=== PATIENT | female | born 1945 | race Caucasian/White ===

== ENCOUNTER 2016-08-18 22:35 | Emergency (ER) | payer MEDICARE ==
[2016-08-18 22:39] VITALS: BP 131/69
[2016-08-18] MEDS ORDERED: traMADol TAB* 50 MG PO ONE (23:35)
--- NOTE | 2016-08-19 00:41 | ED ---
Upper Extremity Pain - HPI Summary HPI Summary: 71F presents with left wrist pain s/p FOOSH today. She states she stumbled backwards and landed on her left hand. She is left handed. She denies any previous fracture to the area. She denies any numbness or tingling. She took an alleve for pain. She is retired. The fall was a mechanical fall. She denies any numbness or tingling. She has been placing ice on the area. - History of Current Complaint Chief Complaint: EDExtremityUpper Stated Complaint: WRIST INJURY Time Seen by Provider: 08/18/16 23:19 - Allergies/Home Medications Allergies/Adverse Reactions: Allergies Allergy/AdvReac Type Severity Reaction Status Date / Time Penicillins Allergy Severe Hives Verified 10/12/15 21:02 PMH/Surg Hx/FS Hx/Imm Hx Endocrine/Hematology History: Denies: Hx Diabetes, Hx Thyroid Disease Cardiovascular History: Denies: Hx Congestive Heart Failure, Hx Hypertension Respiratory History: Denies: Hx Asthma, Hx Chronic Obstructive Pulmonary Disease (COPD) GI History: Denies: Hx Ulcer History: Denies: Hx Renal Disease Musculoskeletal History: Reports: Hx Rheumatoid Arthritis Denies: Hx Osteoporosis - Cancer History Hx Chemotherapy: No Hx Radiation Therapy: No - Surgical History Surgery Procedure, Year, and Place: - Immunization History Date of Tetanus Vaccine: Unk Date of Influenza Vaccine: Fall 2013 Infectious Disease History: Reports: 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 Denies: Hx Clostridium Difficile, Hx Hepatitis, Hx Human Immunodeficiency Virus (HIV), Hx Shingles, Hx Tuberculosis, Traveled Outside the [place] in Last 30 Days - Family History Known Family History: Positive: Other - Alzheimers and dementia - Social History Alcohol Use: None Substance Use Type: Reports: None Smoking Status (MU): Never Smoked Tobacco Review of Systems Negative: Fever Negative: Chest Pain Negative: Shortness Of Breath Positive: Myalgia - left wrist pain All Other Systems Reviewed And Are Negative: Yes Physical Exam Triage Information Reviewed: Yes Vital Signs On Initial Exam: Initial Vitals Temp Pulse Resp BP Pulse Ox 99 F 97 18 131/69 98 08/18/16 22:36 08/18/16 22:36 08/18/16 22:36 08/18/16 22:36 08/18/16 22:36 Vital Signs Reviewed: Yes Appearance: Positive: Well-Appearing Skin: Positive: Warm, Dry Head/Face: Positive: Normal Head/Face Inspection Eyes: Positive: Normal, Conjunctiva Clear ENT: Positive: Normal ENT inspection, Pharynx normal, TMs normal Respiratory/Lung Sounds: Positive: Clear to Auscultation, Breath Sounds Present Cardiovascular: Positive: Normal, RRR Musculoskeletal: Positive: Limited @ - left wrist, Other - good pulses, capillary refill < 2 secs, nontender finger and full ROM, neg snuff box tenderness Procedures - Splinting Location: left wrist Hand-Made Type: orthoglass Splint: sugar-tong Pre-Proc Neuro Vasc Exam: normal Post-Proc Neuro Vasc Exam: normal Diagnostics - Vital Signs Vital Signs Temp Pulse Resp BP Pulse Ox 08/18/16 22:36 99 F 97 18 131/69 98 - Laboratory Lab Statement: Any lab studies that have been ordered have been reviewed, and results considered in the medical decision making process. - Radiology wrist Xray Interpretation: Positive (See Comments) - distal radial fracture with impaction Radiology Interpretation Completed By: ED Physician Course/Dx - Course Course Of Treatment: 71F presents with left wrist pain s/p falling on wrist today. was mechanical fall. denies any previous injury. is left handed. neurovascular intact, no deformity seen on exam but had edema present. xray read by me as distal radius fracture. applied sugar tong splint. patient understands and agrees with plan - Diagnoses Differential Diagnosis/HQI/PQRI: Positive: Fracture (Closed), Strain Provider Diagnoses: Left radial fracture Discharge - Discharge Plan Condition: Good Disposition: HOME Prescriptions: traMADol TAB* [Ultram*] 25 mg PO Q8H PRN #15 tab MDD 3 PRN Reason: Pain Patient Education Materials: Wrist Fracture in Adults (ED) Referrals: Bess Kaur NP [Primary Care Provider] - Farrukh Curran MD [Medical Doctor] - Additional Instructions: Keep elbow in sling as needed, make sure to take out a couple times a day and move shoulder around Keep splint on area and keep dry Call ortho office to set up appointment for follow up Use tyenlol or ibuprofen for pain every 6 hours and use narcotic for breakthrough pain every 8 hours Ice, elevate Return to ED if develop any new or worsening symptoms
--- NOTE | 2016-08-19 09:26 | RAD ---
INDICATION: Wrist pain after a fall on outstretched hand COMPARISON: None. TECHNIQUE: 3 views left wrist. REPORT: There is a slightly displaced fracture of the distal left radial metaphysis with disruption of the palmar aspect cortex visible on the lateral view radiograph. There is also fracture of the left ulnar styloid. The remaining visualized bones are intact and properly aligned. IMPRESSION: Minimally displaced fracture involving the distal left radius and ulnar styloid.
== END 2016-08-19 01:00 | disposition home or self-care (01) ==
LOC: ED 22:35
DX: S52.502A Unspecified fracture of the lower end of left radius, initial encounter for closed fracture (principal); S52.612A Displaced fracture of left ulna styloid process, initial encounter for closed fracture; W18.30XA Fall on same level, unspecified, initial encounter; Y93.9 Activity, unspecified; Y92.9 Unspecified place or not applicable; M06.9 Rheumatoid arthritis, unspecified; Z88.0 Allergy status to penicillin
CPT/HCPCS: 99281; A9270-GY

== ENCOUNTER 2016-10-26 18:15 | Emergency (ER) | payer MEDICARE ==
[2016-10-26 18:30] VITALS: BP 128/78
--- NOTE | 2016-10-26 19:38 | ED ---
Throat Pain/Nasal Congestion - HPI Summary HPI Summary: 71 yr old female with the complaint of left ear pain. Onset over the past week. She got some water in her left ear during shower. she has had progressive pain and discomfort. She has not had drainage. She denies fever, chills. She states the pain from the left ear radiates toward the front and points to the preauricular area, and also the inferior auricular area. She has some discomfort as anterior as the zygomatic area on the left. - History of Current Complaint Chief Complaint: UCEar Time Seen by Provider: 10/26/16 19:20 - Allergies/Home Medications Allergies/Adverse Reactions: Allergies Allergy/AdvReac Type Severity Reaction Status Date / Time Penicillins Allergy Severe Hives Verified 10/26/16 18:30 PMH/Surg Hx/FS Hx/Imm Hx Endocrine/Hematology History: Denies: Hx Diabetes, Hx Thyroid Disease Cardiovascular History: Denies: Hx Congestive Heart Failure, Hx Hypertension Respiratory History: Denies: Hx Asthma, Hx Chronic Obstructive Pulmonary Disease (COPD) GI History: Denies: Hx Ulcer History: Denies: Hx Renal Disease Musculoskeletal History: Reports: Hx Rheumatoid Arthritis Denies: Hx Osteoporosis Neurological History: Reports: Other Neuro Impairments/Disorders - cental tremors. 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 Denies: Hx Clostridium Difficile, Hx Hepatitis, Hx Human Immunodeficiency Virus (HIV), Hx Shingles, Hx Tuberculosis, Traveled Outside the [place] in Last 30 Days - Family History Known Family History: Positive: Other - Alzheimers and dementia - Social History Alcohol Use: None Substance Use Type: Reports: None Smoking Status (MU): Never Smoked Tobacco Review of Systems Constitutional: Negative Positive: Ear Ache All Other Systems Reviewed And Are Negative: Yes Physical Exam Triage Information Reviewed: Yes Vital Signs On Initial Exam: Initial Vitals Temp Pulse Resp BP Pulse Ox 98.5 F 73 18 128/78 99 10/26/16 18:27 10/26/16 18:27 10/26/16 18:27 10/26/16 18:27 10/26/16 18:27 Vital Signs Reviewed: Yes Appearance: Positive: Well-Appearing, No Pain Distress Skin: Positive: Warm Head/Face: Positive: Normal Head/Face Inspection Eyes: Positive: EOMI ENT: Positive: Other - left external canal is with edema, and redness. She has tenderness on retraction of the left pinna Neck: Positive: Supple, Tenderness @ - pre and inferior auricular area on the left. no tenderness over the left zygomatic area. Respiratory/Lung Sounds: Positive: Clear to Auscultation, Breath Sounds Present Cardiovascular: Positive: RRR. Negative: Murmur Musculoskeletal: Positive: Strength/ROM Intact Neurological: Positive: Sensory/Motor Intact, Alert, Oriented to Person Place, Time, CN Intact II-III - Gwyn Coma Scale Best Eye Response: 4 - Spontaneous Best Motor Response: 6 - Obeys Commands Best Verbal Response: 5 - Oriented Diagnostics - Vital Signs Vital Signs Temp Pulse Resp BP Pulse Ox 10/26/16 18:27 98.5 F 73 18 128/78 99 - Laboratory Lab Statement: Any lab studies that have been ordered have been reviewed, and results considered in the medical decision making process. EENT Course/Dx - Course Course Of Treatment: 71 yr old with left otitis externa, dc home on cipro hc - Diagnoses Provider Diagnoses: Otitis externa Discharge - Discharge Plan Condition: Good Disposition: HOME Prescriptions: Ciprofloxacin-Hydrocortisone [Cipro Hc] 3 drop LEFT EAR BID #1 bottle Patient Education Materials: Otitis Externa (ED) Referrals: Bess Kaur NP [Primary Care Provider] -
== END 2016-10-26 19:40 | disposition home or self-care (01) ==
LOC: UCEAST 18:15
DX: H60.92 Unspecified otitis externa, left ear (principal); Z88.0 Allergy status to penicillin; M06.9 Rheumatoid arthritis, unspecified
CPT/HCPCS: 99212; G0463

== ENCOUNTER 2017-01-16 19:43 | Emergency (ER) | payer MEDICARE ==
[2017-01-16 19:52] VITALS: BP 107/88
--- NOTE | 2017-01-16 20:05 | UC ---
Lower Extremity/Ankle HPI - HPI Summary HPI Summary: Pt presents with left leg bruising and pain after a fall 3 days ago. She tells me that 3 days ago she was carrying items down a few concrete steps outside her daughter's home at nighttime - she missed a step and fell forward, landing on her left knee and chavis. She sustained a superficial laceration to her upper chavis , abrasion to her left knee, and experienced immediate pain. Did not hit her head. She did not seek immediate medical treatment. She was able to ambulate without assistance. She put a bandage over the laceration and iced the leg that night. Yesterday she was very active taking care of his grandchildren and doing some shopping - at the end of the day, her left leg was more painful than previously. Today she noticed significant bruising about the anterior aspect of the left leg and presented to for evaluation. She denies fever, chills, SOB, history of any bleeding or clotting disorders, previous injury to that LE, numbness or tingling. - History of Current Complaint Chief Complaint: UCLowerExtremity Stated Complaint: LEG INJURY Time Seen by Provider: 01/16/17 20:05 Hx Obtained From: Patient Onset/Duration: Sudden Onset Severity Initially: Moderate Severity Currently: Mild Pain Intensity: 4 Pain Scale Used: 0-10 Numeric Aggravating Factor(s): Standing, Ambulation Alleviating Factor(s): Rest, Ice Able to Bear Weight: Yes - Allergies/Home Medications Allergies/Adverse Reactions: Allergies Allergy/AdvReac Type Severity Reaction Status Date / Time Penicillins Allergy Severe Hives Verified 01/16/17 19:52 PMH/Surg Hx/FS Hx/Imm Hx Previously Healthy: Yes - Surgical History Surgical History: Yes Surgery Procedure, Year, and Place: - Family History Known Family History: Positive: Other - Alzheimers and dementia - Social History Occupation: Retired Lives: With Family Alcohol Use: None Substance Use Type: None Smoking Status (MU): Never Smoked Tobacco - Immunization History Most Recent Tetanus Shot: not sure Review of Systems Constitutional: Negative Skin: Bruising - Left leg Respiratory: Negative Cardiovascular: Negative Gastrointestinal: Negative Musculoskeletal: Other: - Pain left leg Neurological: Negative Psychological: Negative All Other Systems Reviewed And Are Negative: Yes Physical Exam Triage Information Reviewed: Yes Appearance: Well-Appearing, Well-Nourished Vital Signs: Initial Vital Signs Temp 98.1 F 01/16/17 19:47 Pulse 78 01/16/17 19:47 Resp 18 01/16/17 19:47 BP 107/88 01/16/17 19:47 Pulse Ox 100 01/16/17 19:47 Vital Signs Reviewed: Yes Respiratory: Positive: Chest non-tender, Lungs clear, Normal breath sounds, No respiratory distress, No accessory muscle use Cardiovascular: Positive: RRR, No Murmur, Pulses Normal, Brisk Capillary Refill Musculoskeletal: Positive: Strength Intact, ROM Intact, Edema @ - Mild edema left leg surround the area of injury., Other: - Left leg/knee NTTP. No calf pain or tenderness. Neurological: Positive: Alert, Muscle Tone Normal, Other: - Sensations intact b/ l LE. Psychological: Positive: Age Appropriate Behavior Skin: Positive: Other - Two significant sites of ecchymosis on the anterior and medial aspect of left leg #1 approx 13-14cm in diameter and #2 approx 9-10cm in diameter. There is a 1.5cm elliptically shaped laceration situated superficially on the left tibial tuberosity..appears to be healing and scabbing without any drainage, bleeding, streaking, or odor. There is a 1cm diameter superficial abrasion on the left patella. There is no erythema, streaking, or nodules appreciated. Lower Extremity Course/Dx - Course Course Of Treatment: Pt advised to continue elevating, icing, and ambulating as tolerated. Advised to watch for warning signs of infection or clot - such as SOB, redness, pain, localized swelling, calf pain, fever, or chills. - Differential Dx/Diagnosis Differential Diagnosis/HQI/PQRI: Cellulitis, Contusion, Foreign Body, Fracture ( Closed), Phlebitis, Sprain, Strain Provider Diagnoses: Left leg contusion Discharge - Discharge Plan Condition: Stable Disposition: HOME Patient Education Materials: Hematoma (ED) Referrals: Bess Kaur NP [Primary Care Provider] - Additional Instructions: 1) Ice and elevate your leg 2) Keep walking and activities as tolerated Monitor the leg for any redness, increased swelling, or increased areas of pain - if you develop these or shortness of breath, fever, or chest pain - please go to the ED.
== END 2017-01-16 20:37 | disposition home or self-care (01) ==
LOC: UCEAST 19:43
DX: S81.812A Laceration without foreign body, left lower leg, initial encounter (principal); W10.8XXA Fall (on) (from) other stairs and steps, initial encounter; Y93.01 Activity, walking, marching and hiking; Y92.008 Other place in unspecified non-institutional (private) residence as the place of occurrence of the external cause; Y99.9 Unspecified external cause status
CPT/HCPCS: 99211; G0463

== ENCOUNTER 2017-05-02 13:39 | Emergency (ER) | payer MEDICARE ==
[2017-05-02 14:14] VITALS: BP 136/82
[2017-05-02] MEDS ORDERED: Acetaminophen TAB* 325 MG PO ONE (14:57)
--- NOTE | 2017-05-02 15:05 | UC ---
Respiratory Complaint HPI - HPI Summary HPI Summary: 71 year old female here for fever, cough and congestion since yesterday. Her also had similar symptoms few days ago, and diagnosed with the flu. She denies n/v/d chest pain or sob. - History of Current Complaint Chief Complaint: UCRespiratory Stated Complaint: FLU SYMPTOMS Time Seen by Provider: 05/02/17 14:20 Hx Obtained From: Patient ?: No Onset/Duration: Gradual Onset Timing: Constant Severity Initially: Mild Pain Intensity: 0 Character: Cough: Productive Associated Signs And Symptoms: Positive: Fever, Nasal Congestion. Negative: Pleuritic Chest Pain, Wheezing, Hemoptysis, Calf Pain, Edema, Hoarseness, Sinus Discomfort - Allergies/Home Medications Allergies/Adverse Reactions: Allergies Allergy/AdvReac Type Severity Reaction Status Date / Time Penicillins Allergy Hives Verified 05/02/17 14:14 Home Medications: Home Medications Simvastatin 20 mg PO DAILY 05/02/17 [History Confirmed 05/02/17] PMH/Surg Hx/FS Hx/Imm Hx Previously Healthy: No Cardiovascular History: Hypertension Neurological History: Other - central tremors Other Neurological History: Central tremors - Surgical History Surgical History: Yes Surgery Procedure, Year, and Place: - Family History Known Family History: Positive: Other - Alzheimers and dementia - Social History Alcohol Use: None Substance Use Type: None Smoking Status (MU): Never Smoked Tobacco - Immunization History Most Recent Tetanus Shot: not sure Review of Systems Constitutional: Fever Skin: Negative Eyes: Negative ENT: Negative Respiratory: Cough Cardiovascular: Negative Gastrointestinal: Negative Genitourinary: Negative Motor: Negative Neurovascular: Negative Musculoskeletal: Negative Neurological: Negative Psychological: Negative All Other Systems Reviewed And Are Negative: Yes Physical Exam Triage Information Reviewed: Yes Appearance: Well-Appearing, No Pain Distress Vital Signs: Initial Vital Signs Temp 38.7 C 05/02/17 14:10 Pulse 95 05/02/17 14:10 Resp 16 05/02/17 14:10 BP 136/82 05/02/17 14:10 Pulse Ox 98 05/02/17 14:10 Vital Signs Reviewed: Yes Eye Exam: Normal ENT Exam: Normal ENT: Positive: Nasal drainage, Uvula midline. Negative: Pharyngeal erythema, TMs normal, TM bulging, TM dull, TM red, Tonsillar swelling, Tonsillar exudate, Trismus, Hoarse voice, Sinus tenderness Dental Exam: Normal Neck exam: Normal Respiratory Exam: Normal Cardiovascular Exam: Normal Abdominal Exam: Normal Musculoskeletal Exam: Normal Neurological Exam: Normal Psychological Exam: Normal Skin Exam: Normal UC Diagnostic Evaluation - Laboratory O2 Sat by Pulse Oximetry: 98 Respiratory Course/Dx - Course Course Of Treatment: Patient febrile here. Given antipyretic. She appears well , non-toxic. Reassured and supportive care instructions. - Differential Dx/Diagnosis Differential Diagnosis/HQI/PQRI: Bronchitis, Laryngitis, Lower Resp Infection, Sinusitis Provider Diagnoses: Viral illness Discharge - Discharge Plan Condition: Good Disposition: HOME Prescriptions: Guaifen/Dextromethorphan/K Cit [Sorbutuss Liquid] 5 ml PO Q6HR #1 bottle MDD 2 Patient Education Materials: Viral Syndrome (ED) Referrals: Bess Kaur NP [Primary Care Provider] -
== END 2017-05-02 15:24 | disposition home or self-care (01) ==
LOC: UCEAST 13:39
DX: B34.9 Viral infection, unspecified (principal); I10 Essential (primary) hypertension; G25.0 Essential tremor; Z88.0 Allergy status to penicillin
CPT/HCPCS: 87502; 99212; A9270-GY; G0463

== ENCOUNTER 2017-10-02 20:12 | Emergency (ER) | payer MEDICARE ==
[2017-10-02 20:21] VITALS: BP 117/63
--- NOTE | 2017-10-02 20:41 | UC ---
Ear Complaint HPI - HPI Summary HPI Summary: ears feels clogged - History of Current Complaint Chief Complaint: UCEar Stated Complaint: EAR COMPLAINT Time Seen by Provider: 10/02/17 20:30 Hx Obtained From: Patient ?: No Onset/Duration: Sudden Onset Pain Intensity: 2 Pain Scale Used: 0-10 Numeric Associated Signs/Symptoms: Positive: Hearing Loss - Allergies/Home Medications Allergies/Adverse Reactions: Allergies Allergy/AdvReac Type Severity Reaction Status Date / Time Penicillins Allergy Hives Verified 10/02/17 20:21 PMH/Surg Hx/FS Hx/Imm Hx Previously Healthy: No Endocrine History: Dyslipidemia Neurological History: Other Other Neurological History: essential tremor - Surgical History Surgical History: Yes Surgery Procedure, Year, and Place: - Family History Known Family History: Positive: Other - Alzheimers and dementia - Social History Occupation: Retired Lives: With Family Alcohol Use: None Substance Use Type: None Smoking Status (MU): Never Smoked Tobacco - Immunization History Most Recent Tetanus Shot: not sure Review of Systems Constitutional: Negative Skin: Negative Eyes: Negative ENT: Ear Ache - bilateral ear congestion and pressure Respiratory: Negative Cardiovascular: Negative Gastrointestinal: Negative Genitourinary: Negative Motor: Negative Neurovascular: Negative Musculoskeletal: Negative Neurological: Negative Psychological: Negative Is Patient Immunocompromised?: No All Other Systems Reviewed And Are Negative: Yes Physical Exam Triage Information Reviewed: Yes Appearance: Well-Appearing, No Pain Distress, Well-Nourished Vital Signs: Initial Vital Signs Temp 97.8 F 10/02/17 20:16 Pulse 83 10/02/17 20:16 Resp 18 10/02/17 20:16 BP 117/63 10/02/17 20:16 Pulse Ox 96 10/02/17 20:16 Vital Signs Reviewed: Yes Eye Exam: Normal Eyes: Positive: Conjunctiva Clear ENT Exam: Normal ENT: Positive: Normal ENT inspection, Hearing grossly normal, Pharynx normal, Nasal drainage, TMs normal - cerumen impaction TM WNL after irragation and cerumen removal. Negative: Trismus, Muffled voice, Hoarse voice, Sinus tenderness Dental Exam: Normal Neck exam: Normal Neck: Positive: Supple, Nontender Respiratory Exam: Normal Respiratory: Positive: Chest non-tender, No respiratory distress, No accessory muscle use Cardiovascular Exam: Normal Cardiovascular: Positive: RRR, Pulses Normal, Brisk Capillary Refill Musculoskeletal Exam: Normal Musculoskeletal: Positive: Strength Intact, ROM Intact, No Edema Neurological Exam: Normal Neurological: Positive: Alert, Muscle Tone Normal Psychological Exam: Normal Skin Exam: Normal Ear Complaint Course/Dx - Course Course Of Treatment: tolerated wax removal well and feels much better - Differential Dx/Diagnosis Provider Diagnoses: bilateral cerumen impaction-resolved Discharge - Sign-Out/Discharge Documenting (check all that apply): Patient Departure - Discharge Plan Condition: Stable Disposition: HOME Patient Education Materials: Cerumen Impaction (ED) Referrals: Bess Kaur NP [Primary Care Provider] - If Needed - Billing Disposition and Condition Condition: STABLE Disposition: Home
== END 2017-10-02 21:37 | disposition home or self-care (01) ==
LOC: UCEAST 20:12
DX: H61.23 Impacted cerumen, bilateral (principal); Z88.0 Allergy status to penicillin
CPT/HCPCS: 99213; G0463

== ENCOUNTER 2018-01-22 13:01 | Emergency (ER) | payer MEDICARE ==
[2018-01-22 13:53] VITALS: BP 125/72
--- NOTE | 2018-01-22 15:09 | UC ---
Respiratory Complaint HPI - HPI Summary HPI Summary: 72 yo female with sinus pressure and post nasal drip for about 3 weeks No f/c past day feels like its in her chest (chest tightness) has had bronchitis before - History of Current Complaint Chief Complaint: UCRespiratory Stated Complaint: RESP COMPLAINT Time Seen by Provider: 01/22/18 14:48 Hx Obtained From: Patient Onset/Duration: Sudden Onset, Lasting Weeks Timing: Constant Severity Initially: Mild Severity Currently: Moderate Pain Intensity: 3 Pain Scale Used: 0-10 Numeric Character: Cough: Nonproductive Aggravating Factors: Nothing Associated Signs And Symptoms: Positive: URI, Nasal Congestion, Hoarseness, Sinus Discomfort - Allergies/Home Medications Allergies/Adverse Reactions: Allergies Allergy/AdvReac Type Severity Reaction Status Date / Time Penicillins Allergy Hives Verified 01/22/18 13:52 Home Medications: Home Medications Chlorpheniramine/Dextromethorp [Cough-Cold Tablet] 1 tab PO ONCE PRN 01/22/18 [ History Confirmed 01/22/18] PMH/Surg Hx/FS Hx/Imm Hx Previously Healthy: Yes Endocrine History: Dyslipidemia - Surgical History Surgical History: Yes Surgery Procedure, Year, and Place: - Family History Known Family History: Positive: Hypertension, Other - Alzheimers and dementia - Social History Alcohol Use: None Substance Use Type: None Smoking Status (MU): Never Smoked Tobacco - Immunization History Most Recent Tetanus Shot: not sure Review of Systems All Other Systems Reviewed And Are Negative: Yes Constitutional: Positive: Negative Skin: Positive: Negative Eyes: Positive: Negative ENT: Positive: Nasal Discharge, Sinus Congestion, Sinus Pain/Tenderness Respiratory: Positive: Cough Cardiovascular: Positive: Negative Gastrointestinal: Positive: Negative Genitourinary: Positive: Negative Motor: Positive: Negative Neurovascular: Positive: Negative Musculoskeletal: Positive: Negative Neurological: Positive: Negative Psychological: Positive: Negative Physical Exam Triage Information Reviewed: Yes Appearance: Well-Appearing, No Pain Distress, Well-Nourished Vital Signs: Initial Vital Signs Temp 98.7 F 01/22/18 13:47 Pulse 59 01/22/18 13:47 Resp 20 01/22/18 13:47 BP 125/72 01/22/18 13:47 Pulse Ox 97 01/22/18 13:47 Vital Signs Reviewed: Yes Eyes: Positive: Conjunctiva Clear ENT: Positive: Hearing grossly normal, Sinus tenderness. Negative: Nasal congestion, Nasal drainage, Tonsillar swelling, Tonsillar exudate, Muffled voice , Hoarse voice, Dental tenderness Neck: Positive: Supple, Nontender, No Lymphadenopathy Respiratory: Positive: No respiratory distress, No accessory muscle use, Other: - rhonchi with forced expiration only Cardiovascular: Positive: RRR. Negative: Tachycardia, Bradycardia Musculoskeletal: Positive: ROM Intact, No Edema Neurological: Positive: Alert, Other: - temors Psychological Exam: Normal Skin Exam: Normal UC Diagnostic Evaluation - Laboratory O2 Sat by Pulse Oximetry: 97 - normal/not hypoxic Respiratory Course/Dx - Differential Dx/Diagnosis Provider Diagnoses: acute bronchitis. acute sinusitis Discharge - Sign-Out/Discharge Documenting (check all that apply): Patient Departure All imaging exams completed and their final reports reviewed: No Studies - Discharge Plan Condition: Stable Disposition: HOME Prescriptions: ceFUROXime TAB(*) [Ceftin TAB(*)] 250 mg PO BID #14 tab Fluticasone NASAL SPRAY 50MCG* [Flonase NASAL SPRAY 50MCG*] 2 spray BOTH NARES BID #1 btl Patient Education Materials: Sinusitis (ED), Acute Bronchitis (ED) Referrals: Bess Kaur NP [Primary Care Provider] - 5 Days (if not better) Additional Instructions: saline nasal spray 2 sprays each nostril twice daily about 5 minutes after the saline sprays use your flonase recheck for new or worsening symptoms - Billing Disposition and Condition Condition: STABLE Disposition: Home
== END 2018-01-22 15:32 | disposition home or self-care (01) ==
LOC: UCEAST 13:01
DX: J20.9 Acute bronchitis, unspecified (principal); J01.90 Acute sinusitis, unspecified; Z88.0 Allergy status to penicillin
CPT/HCPCS: 99212; G0463

== ENCOUNTER 2018-02-03 14:59 | Emergency (ER) | payer MEDICARE ==
[2018-02-03 15:14] VITALS: BP 138/73
--- NOTE | 2018-02-03 15:34 | UC ---
Respiratory Complaint HPI - HPI Summary HPI Summary: 72 y/o female presents to the urgent care c/o persistent productive cough w/ nasal congestion and yellowish discharge and moderate PND for the past 2 weeks. Pt states she was seen at the clinic 2 weeks ago and Dx w/ bronchitis and sinusitis and Rx Cefuroxime and Flonase nasal spray . Symptoms have not resolved. This morning she felt more chest congestion and mild chest tightness w / deep breathing. Pt denies fever, SOB, wheezing, chest pain, abdominal pain, N/ V/D. 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 Negative: Dyspnea, Fever, Chills, Wheezing, Dizziness Related History: Seasonal Allergies - Risk Factors Pulmonary Embolism Risk Factors: Negative Cardiac Risk Factors: Negative Pseudomonas Risk Factors: Negative Tuberculosis Risk Factors: Negative - Allergies/Home Medications Allergies/Adverse Reactions: Allergies Allergy/AdvReac Type Severity Reaction Status Date / Time Penicillins Allergy Hives Verified 02/03/18 15:15 PMH/Surg Hx/FS Hx/Imm Hx Previously Healthy: Yes Endocrine History: Dyslipidemia Other Neurological History: Central Tremor - Surgical History Surgical History: Yes Surgery Procedure, Year, and Place: - Family History Known Family History: Positive: Hypertension Family History: Alzheimers and dementia, Parkinsons - Social History Occupation: Retired Lives: With Family Alcohol Use: None Substance Use Type: None Smoking Status (MU): Never Smoked Tobacco - Immunization History Most Recent Tetanus Shot: not sure Review of Systems All Other Systems Reviewed And Are Negative: Yes Constitutional: Positive: Fatigue Skin: Positive: Negative Eyes: Positive: Negative ENT: Positive: Nasal Discharge, Sinus Congestion, Sinus Pain/Tenderness, Other - +PND Respiratory: Positive: Cough - productive Cardiovascular: Positive: Negative Gastrointestinal: Positive: Negative Genitourinary: Positive: Negative Motor: Positive: Negative Neurovascular: Positive: Negative Musculoskeletal: Positive: Negative Neurological: Positive: Negative Psychological: Positive: Negative Is Patient Immunocompromised?: No Physical Exam - Summary Physical Exam Summary: Vital Signs Reviewed: Yes General: well developed, well nourished thin female sitting in the examining table w/o any apparent distress Eyes: Positive: Conjunctiva Clear - PERRLA, EOMI, fundi grossly normal ENT: Positive: Normal ENT inspection, Hearing grossly normal, Pharynx normal, Nasal congestion - edematous and erythematous nasal mucosa, Nasal drainage - yellowish drainage, TMs normal. Negative: Tonsillar swelling, Tonsillar exudate Neck: Positive: Supple, Nontender, No Lymphadenopathy Respiratory: no orthopnea or dyspnea. Able to speak in full sentences, no retractions or accessory muscle use, no tripod position, stridor, or head bobbing. Positive breath sounds bilaterally. Mild posterior upper lungs w/ rhonchi, mild crackles in the posterior left, no wheezing on b/L lungs, or rales. Cardiovascular: Positive: RRR, No Murmur, Pulses Normal, Brisk Capillary Refill Abdomen Description: Positive: Nontender, No Organomegaly, Soft. Negative: CVA Tenderness (R), CVA Tenderness (L) Bowel Sounds: Positive: Present Musculoskeletal Exam: Normal Musculoskeletal: Positive: Strength Intact, ROM Intact, No Edema Neurological Exam: Normal Psychological Exam: Normal Skin Exam: Normal Triage Information Reviewed: Yes Vital Signs: Initial Vital Signs Temp 98.7 F 02/03/18 15:11 Pulse 80 02/03/18 15:11 Resp 18 02/03/18 15:11 BP 138/73 02/03/18 15:11 Pulse Ox 98 02/03/18 15:11 Diagnostic Evaluation - Laboratory O2 Sat by Pulse Oximetry: 98 Respiratory Course/Dx - Course Course Of Treatment: 72 y/o female presents to the urgent care c/o persistent productive cough w/ nasal congestion and yellowish discharge and moderate PND for the past 2 weeks. Pt states she was seen at the clinic 2 weeks ago and Dx w / bronchitis and sinusitis and Rx Cefuroxime and Flonase nasal spray . Symptoms have not resolved. This morning she felt more chest congestion and mild chest tightness w/ deep breathing. Pt denies fever, SOB, wheezing, chest pain, abdominal pain, N/V/D. Hx obtained. Pt w/ B/L posterior lungs w/ scattered rhonchi and mild crackles in the postrior left lung on examination, O2Sat:98%. Chest X-ray ordered to r/o pneumonia. Impression: air space disease in the left lung base which may represents pneumonia. I discussed all the findings with the patient and patient. Rx Doxyclyne PO, Albuterol inhaler, Tessalon tabs. Pt also advisesd to continue using Flonase nasal spray w/ saline drops to clear sinuses. Pt stronlgy advised if her symptoms worse despite taking ABx to immediately go to the ER for further management. Otherwirse to f/u w/ her PCP in 2-3 days to check her symptoms are improving.. All questions were answered at patient satisfaction. There were no further complaints or concerns. Pt left the clinic hemodynamically stable, A&OX3 - Differential Dx/Diagnosis Differential Diagnosis/HQI/PQRI: Asthma, Bronchitis, Lower Resp Infection, Sinusitis, Other - pneumonia Provider Diagnosis: Community acquired pneumonia Discharge - Sign-Out/Discharge Documenting (check all that apply): Patient Departure - D/C home All imaging exams completed and their final reports reviewed: Yes - Discharge Plan Condition: Stable Disposition: HOME Prescriptions: Albuterol HFA INHALER* [Ventolin HFA Inhaler*] 1 - 2 puff INH Q6H PRN #1 mdi PRN Reason: bronchospasm Benzonatate CAP* [Tessalon 100 MG CAP*] 100 mg PO TID PRN #21 cap PRN Reason: Cough DOXYcycline CAP(*) [DOXYcycline 100MG CAP(*)] 100 mg PO BID #20 cap Patient Education Materials: Community Acquired Pneumonia (ED) Referrals: Bess Kaur NP [Primary Care Provider] - 3 Days Additional Instructions: 1-Please take full course of antibiotic to avoid resistance. Take yogurt w/ probiotics or Culturelle to protect your GI system 2-Take Tessalon tabs PO as directed and use the albuterol inhaler to alleviate cough. Increase fluid intake, rest and eat well. 3- Continue using the Flonase nasal spray and use saline drops to clear sinuses as directed 4- If symptoms do not improve or worsen or your develop SOB with fever and severe cough please go immediately to the ER further evaluation and treatment. 4-See your PCP in 3 days to check your symptoms are improving - Billing Disposition and Condition Condition: STABLE Disposition: Home
== END 2018-02-03 16:46 | disposition home or self-care (01) ==
LOC: UCEAST 14:59
DX: J18.9 Pneumonia, unspecified organism (principal); Z88.0 Allergy status to penicillin
CPT/HCPCS: 71046; 99212; G0463

== ENCOUNTER 2018-06-01 15:48 | Emergency (ER) | payer MEDICARE ==
[2018-06-01 19:27] LABS: ABS Basophils 0 10^3/ul (0-0.2); ABS Eosinophils 0.1 10^3/ul (0-0.6); ABS Lymphocytes 1.6 10^3/ul (1.0-4.8); ABS Monocytes 0.3 10^3/ul (0-0.8); ABS Nucleated RBC 0 10^3/ul; Eosinophil % 1.6 %; Hematocrit 40 % (33-41); Hemoglobin 13.4 g/dL (12.0-16.0); Lymphocyte % 26.8 %; Mean Corpuscular HGB Conc 34 g/dL (31-36); Mean Corpuscular Hemoglobin 30 pg (27-31); Mean Corpuscular Volume 88 fL (80-97); Mean Platelet Volume 8.9 fL (7.4-10.4); Nucleated Red Blood Cells % 0.1; Platelet Count 132 10^3/uL (150-450); Red Cell Distribution Width 13 % (10.5-15); White Blood Count 6.1 10^3/uL (3.5-10.8)
[2018-06-01 19:32] LABS: INR 0.94 (0.77-1.02)
[2018-06-01 19:44] LABS: Albumin 3.9 g/dL (3.2-5.2); Albumin/Globulin Ratio 1.6 (1-3); BUN/Creatinine Ratio 23.1 (8-20); Calcium 8.8 mg/dL (8.6-10.3); EGFR African American 87.8 (>60); EGFR Non-African American 72.6 (>60); Globulin 2.5 g/dL (2-4); Magnesium 2.2 mg/dL (1.9-2.7); Potassium 3.5 mmol/L (3.5-5.0); Total Bilirubin 0.5 mg/dL (0.2-1.0); Total Protein 6.4 g/dL (6.4-8.9)
[2018-06-01 20:03] LABS: Urine Appearance Clear; Urine Bacteria Absent (Absent); Urine Bilirubin Negative (Negative); Urine Blood 1+ (Negative); Urine Color Yellow; Urine Glucose Negative (Negative); Urine Ketones Negative (Negative); Urine Nitrite Negative (Negative); Urine Protein Negative (Negative); Urine Red Blood Cell Trace(0-2/hpf) (Absent); Urine Specific Gravity 1.011 (1.010-1.030); Urine Squamous Epithelial Cell Present (Absent); Urine Urobilinogen Negative (Negative); Urine White Blood Cell 2+(11-20/hpf) (Absent)
[2018-06-01 20:17] LABS: TSH (Thyroid Stimulating Horm) 1.72 mcIU/mL (0.34-5.60)
[2018-06-01 20:25] VITALS: BP 115/86
[2018-06-01] MEDS ORDERED: predniSONE TAB* 20 MG PO ONE (21:06)
[2018-06-01] MEDS ORDERED: Cyclobenzaprine TAB* 10 MG PO ONE (21:06)
[2018-06-01] MEDS ORDERED: Ibuprofen TAB* 600 MG PO ONE (21:06)
--- NOTE | 2018-06-01 21:07 | ED ---
Upper Extremity Pain - HPI Summary HPI Summary: Patient complains of intermittent episodes of right arm pain and numbness and tingling. One episode 10 days ago that lasted for about 20 minutes. One episode today 1 PM that lasted for about 20 minutes. One episode of severe pain here in the waiting room of the ED that lasted about 30 minutes. Pain currently at 2/10. Patient also states some mild associated nausea when pain is intense, and patient felt lightheaded during pain. Patient denies trauma, right upper extremity weakness, any other focal deficits, HUGHES, fever, cough, sore throat, CP, SOB, N/V/D, abdominal pain, change in urine, change in BM. Medical history essential tremor, HDL. - History of Current Complaint Chief Complaint: EDChestPainROMI Stated Complaint: RT ARM PAIN/NAUSEA/DIZZY/WEAK PER PT Time Seen by Provider: 06/01/18 18:33 Hx Obtained From: Patient Hx Last Menstrual Period: na Mechanism Of Injury: Unknown Onset/Duration: Started Days Ago Timing: Intermittent, Lasting Minutes Severity Initially: Mild Severity Currently: Moderate Pain Location: Shoulder, Arm Character: Dull, Aching Aggravating Factor(s): Movement Alleviating Factor(s): Nothing Associated Signs & Symptoms: Positive: Numbness/Tingling - Allergies/Home Medications Allergies/Adverse Reactions: Allergies Allergy/AdvReac Type Severity Reaction Status Date / Time Penicillins Allergy Hives Verified 06/01/18 20:14 PMH/Surg Hx/FS Hx/Imm Hx Endocrine/Hematology History: Denies: Hx Diabetes, Hx Thyroid Disease Cardiovascular History: Denies: Hx Congestive Heart Failure, Hx Hypertension Respiratory History: Denies: Hx Asthma, Hx Chronic Obstructive Pulmonary Disease (COPD) GI History: Denies: Hx Ulcer History: Denies: Hx Renal Disease Musculoskeletal History: Reports: Hx Rheumatoid Arthritis Denies: Hx Osteoporosis Opthamlomology History: Denies: Hx Eye Prosthesis EENT History: Denies: Hx Deafness Neurological History: Reports: Other Neuro Impairments/Disorders - cental tremors. 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 Denies: Hx Clostridium Difficile, Hx Hepatitis, Hx Human Immunodeficiency Virus (HIV), Hx Shingles, Hx Tuberculosis, Traveled Outside the [place] in Last 30 Days - Family History Known Family History: Positive: Hypertension, Other - Alzheimers and dementia Family History: Alzheimers and dementia, Parkinsons - Social History Alcohol Use: None Substance Use Type: Reports: None Smoking Status (MU): Never Smoked Tobacco Review of Systems Constitutional: Negative Eyes: Negative ENT: Negative Cardiovascular: Negative Respiratory: Negative Gastrointestinal: Negative Genitourinary: Negative Musculoskeletal: Other Skin: Negative Neurological: Negative Psychological: Normal All Other Systems Reviewed And Are Negative: Yes Physical Exam - Summary Physical Exam Summary: Neuro exam normal. 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 Flexion extension of right upper extremity against resistance normal. Mild pain with palpation of right upper extremity, right trapezius or right sternocleidomastoid muscles. Lung sounds clear to auscultation bilaterally. Abdomen soft nontender. Triage Information Reviewed: Yes Vital Signs On Initial Exam: Initial Vitals Temp Pulse Resp BP Pulse Ox 98.4 F 76 16 122/83 95 06/01/18 15:56 06/01/18 15:56 06/01/18 15:56 06/01/18 15:56 06/01/18 15:56 Vital Signs Reviewed: Yes Appearance: Positive: Well-Appearing Skin: Positive: Warm Head/Face: Positive: Normal Head/Face Inspection Eyes: Positive: Normal Neck: Positive: Supple Respiratory/Lung Sounds: Positive: Clear to Auscultation Cardiovascular: Positive: Normal Abdomen Description: Positive: Nontender Musculoskeletal: Positive: Normal Neurological: Positive: Normal Psychiatric: Positive: Normal AVPU Assessment: Alert - [place] Coma Scale Best Eye Response: 4 - Spontaneous Best Motor Response: 6 - Obeys Commands Best Verbal Response: 5 - Oriented Coma Scale Total: 15 Diagnostics - Vital Signs Vital Signs Temp Pulse Resp BP Pulse Ox 06/01/18 20:00 75 95 06/01/18 19:43 75 115/86 96 06/01/18 19:00 76 95 06/01/18 18:46 84 94 06/01/18 18:45 167/86 06/01/18 15:56 98.4 F 76 16 122/83 95 - Laboratory Lab Results: Lab Results 06/01/18 06/01/18 06/01/18 Range/Units 19:19 19:19 19:19 WBC 6.1 (3.5-10.8) 10^3/uL RBC 4.50 (3.70-4.87) 10^6 /uL Hgb 13.4 (12.0-16.0) g/dL Hct 40 (33-41) % MCV 88 (80-97) fL MCH 30 (27-31) pg MCHC 34 (31-36) g/dL RDW 13 (10.5-15) % Plt Count 132 L (150-450) 10^3/uL MPV 8.9 (7.4-10.4) fL Neut % (Auto) 66.1 % Lymph % (Auto) 26.8 % [place] % (Auto) 4.9 % Eos % (Auto) 1.6 % Baso % (Auto) 0.6 % Absolute Neuts (auto) 4.0 (1.5-7.7) 10^3/ul Absolute Lymphs (auto) 1.6 (1.0-4.8) 10^3/ul Absolute Monos (auto) 0.3 (0-0.8) 10^3/ul Absolute Eos (auto) 0.1 (0-0.6) 10^3/ul Absolute Basos (auto) 0 (0-0.2) 10^3/ul Absolute Nucleated RBC 0 10^3/ul Nucleated RBC % 0.1 INR (Anticoag Therapy) (0.77-1.02) Sodium 140 (135-145) mmol/L Potassium 3.5 (3.5-5.0) mmol/L Chloride 107 (101-111) mmol/L Carbon Dioxide 26 (22-32) mmol/L Anion Gap 7 (2-11) mmol/L BUN 18 (6-24) mg/dL Creatinine 0.78 (0.51-0.95) mg/dL Est GFR ( Amer) 87.8 (>60) Est GFR (Non-Af Amer) 72.6 (>60) BUN/Creatinine Ratio 23.1 H (8-20) Glucose 110 H (70-100) mg/dL Lactic Acid 0.8 (0.5-2.0) mmol/L Calcium 8.8 (8.6-10.3) mg/dL Magnesium 2.2 (1.9-2.7) mg/dL Total Bilirubin 0.50 (0.2-1.0) mg/dL AST 15 (13-39) U/L ALT 9 (7-52) U/L Alkaline Phosphatase 56 (34-104) U/L Troponin I 0.00 (<0.04) ng/mL Total Protein 6.4 (6.4-8.9) g/dL Albumin 3.9 (3.2-5.2) g/dL Globulin 2.5 (2-4) g/dL Albumin/Globulin Ratio 1.6 (1-3) TSH 1.72 (0.34-5.60) mcIU/mL Urine Color Urine Appearance Urine pH (5-9) Ur Specific [place] (1.010-1.030) Urine Protein (Negative) Urine Ketones (Negative) Urine Blood (Negative) Urine Nitrate (Negative) Urine Bilirubin (Negative) Urine Urobilinogen (Negative) Ur Leukocyte Esterase (Negative) Urine WBC (Auto) (Absent) Urine RBC (Auto) (Absent) Ur Squamous Epith Cells (Absent) Urine Bacteria (Absent) Urine Glucose (Negative) 06/01/18 06/01/18 Range/Units 19:19 19:51 WBC (3.5-10.8) 10^3/uL RBC (3.70-4.87) 10^6 /uL Hgb (12.0-16.0) g/dL Hct (33-41) % MCV (80-97) fL MCH (27-31) pg MCHC (31-36) g/dL RDW (10.5-15) % Plt Count (150-450) 10^3/uL MPV (7.4-10.4) fL Neut % (Auto) % Lymph % (Auto) % [place] % (Auto) % Eos % (Auto) % Baso % (Auto) % Absolute Neuts (auto) (1.5-7.7) 10^3/ul Absolute Lymphs (auto) (1.0-4.8) 10^3/ul Absolute Monos (auto) (0-0.8) 10^3/ul Absolute Eos (auto) (0-0.6) 10^3/ul Absolute Basos (auto) (0-0.2) 10^3/ul Absolute Nucleated RBC 10^3/ul Nucleated RBC % INR (Anticoag Therapy) 0.94 (0.77-1.02) Sodium (135-145) mmol/L Potassium (3.5-5.0) mmol/L Chloride (101-111) mmol/L Carbon Dioxide (22-32) mmol/L Anion Gap (2-11) mmol/L BUN (6-24) mg/dL Creatinine (0.51-0.95) mg/dL Est GFR ( Amer) (>60) Est GFR (Non-Af Amer) (>60) BUN/Creatinine Ratio (8-20) Glucose (70-100) mg/dL Lactic Acid (0.5-2.0) mmol/L Calcium (8.6-10.3) mg/dL Magnesium (1.9-2.7) mg/dL Total Bilirubin (0.2-1.0) mg/dL AST (13-39) U/L ALT (7-52) U/L Alkaline Phosphatase (34-104) U/L Troponin I (<0.04) ng/mL Total Protein (6.4-8.9) g/dL Albumin (3.2-5.2) g/dL Globulin (2-4) g/dL Albumin/Globulin Ratio (1-3) TSH (0.34-5.60) mcIU/mL Urine Color Yellow Urine Appearance Clear Urine pH 7.0 (5-9) Ur Specific [place] 1.011 (1.010-1.030) Urine Protein Negative (Negative) Urine Ketones Negative (Negative) Urine Blood 1+ A (Negative) Urine Nitrate Negative (Negative) Urine Bilirubin Negative (Negative) Urine Urobilinogen Negative (Negative) Ur Leukocyte Esterase 3+ A (Negative) Urine WBC (Auto) 2+(11-20/hpf) A (Absent) Urine RBC (Auto) Trace(0-2/hpf) (Absent) Ur Squamous Epith Cells Present A (Absent) Urine Bacteria Absent (Absent) Urine Glucose Negative (Negative) Result Diagrams: 06/01/18 19:19 06/01/18 19:19 Lab Statement: Any lab studies that have been ordered have been reviewed, and results considered in the medical decision making process. Course/Dx - Course Course Of Treatment: Patient complains of intermittent episodes of right arm pain and numbness and tingling. One episode 10 days ago that lasted for about 20 minutes. One episode today 1 PM that lasted for about 20 minutes. One episode of severe pain here in the waiting room of the ED that lasted about 30 minutes. Pain currently at 2/10. Patient also states some mild associated nausea when pain is intense, and patient felt lightheaded during pain. Patient denies trauma, right upper extremity weakness, any other focal deficits, HUGHES, fever, cough, sore throat, CP, SOB, N/V/D, abdominal pain, change in urine, change in BM. Medical history essential tremor, HDL. Physical exam:Neuro exam normal. 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 Flexion extension of right upper extremity against resistance normal. Mild pain with palpation of right upper extremity, right trapezius or right sternocleidomastoid muscles. Lung sounds clear to auscultation bilaterally. Abdomen soft nontender. Regular rate and rhythm. - Diagnoses Provider Diagnoses: Radiculopathy affecting upper extremity Discharge - Sign-Out/Discharge Documenting (check all that apply): Patient Departure Patient Received Moderate/Deep Sedation with Procedure: No - Discharge Plan Condition: Stable Disposition: HOME Prescriptions: Cyclobenzaprine TAB* [Flexeril 10 MG TAB*] 10 mg PO TID PRN 3 Days #9 tab PRN Reason: Pain predniSONE TAB* [Deltasone 20 MG TAB*] 40 mg PO DAILY 5 Days #10 tab Patient Education Materials: Arm Pain (ED) Referrals: Bess Kaur NP [Primary Care Provider] - Additional Instructions: Take prednisone as directed. Take Flexeril as directed for muscle relaxation. If symptoms persist follow-up with orthopedics Dr. Mckinnon. Return to the ED for any new or worsening symptoms. - Billing Disposition and Condition Condition: STABLE Disposition: Home
== END 2018-06-01 22:20 | disposition home or self-care (01) ==
LOC: ED 15:48
DX: M54.10 Radiculopathy, site unspecified (principal); M06.9 Rheumatoid arthritis, unspecified; E78.5 Hyperlipidemia, unspecified; G25.0 Essential tremor
CPT/HCPCS: 36415; 71045; 80053; 81003; 81015; 83605; 83735; 84443; 84484; 85025; 85610; 87086; 93005; 99283; A9270-GY; J7512

== ENCOUNTER → 2018-06-15 10:39 | Emergency (ER) | payer MEDICARE ==
[2018-06-15 11:50] VITALS: BP 102/57
--- NOTE | 2018-06-15 12:44 | ED ---
Lower Extremity - HPI Summary HPI Summary: Patient is a 72-year-old female with a history of varicose veins presenting to the ED from [facility] with a small "bulge" to the right side of the medial knee without erythema. She states this was tender since this morning. She states she walked a lot yesterday and has never had anything like this before. She was sent over from [facility] to rule out a DVT. On arrival, patient states the area has reduced and she does not feel discomfort in this area at this time. She denies any pain to the calf. Denies any pain to the inner thigh. Patient has no pain with palpation or ambulation at this time. Denies any fevers, sweats, chills, redness to the area. - History of Current Complaint Chief Complaint: EDExtremityLower Stated Complaint: KNOT IN VARICROSE VEINS, RT LEG PER PT Time Seen by Provider: 06/15/18 12:04 Hx Obtained From: Patient, Family/Solar Sales Representative Hx Last Menstrual Period: na Onset of Pain: Minutes Onset/Duration: Minutes Severity Initially: Mild Severity Currently: None Pain Intensity: 0 Pain Scale Used: 0-10 Numeric Timing: Constant Location: Is Discrete @ - right small bulge just above the knee Character Of Pain: Aching Associated Signs And Symptoms: Negative: Swelling, Redness, Bruising Aggravating Factor(s): Standing Alleviating Factor(s): Rest - Risk Factors Gout Risk Factors: Negative DVT Risk Factors: Negative Septic Arthritis Risk Factor: Negative - Allergies/Home Medications Allergies/Adverse Reactions: Allergies Allergy/AdvReac Type Severity Reaction Status Date / Time Penicillins Allergy Hives Verified 06/01/18 20:14 PMH/Surg Hx/FS Hx/Imm Hx Previously Healthy: Yes Endocrine/Hematology History: Denies: Hx Diabetes, Hx Thyroid Disease Cardiovascular History: Denies: Hx Congestive Heart Failure, Hx Hypertension Respiratory History: Denies: Hx Asthma, Hx Chronic Obstructive Pulmonary Disease (COPD) GI History: Denies: Hx Ulcer History: Denies: Hx Renal Disease Musculoskeletal History: Reports: Hx Rheumatoid Arthritis Denies: Hx Osteoporosis Sensory History: Denies: Hx Eye Prosthesis, Hx Deafness Opthamlomology History: Denies: Hx Eye Prosthesis Neurological History: Reports: Other Neuro Impairments/Disorders - cental tremors. 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 Denies: Hx Clostridium Difficile, Hx Hepatitis, Hx Human Immunodeficiency Virus (HIV), Hx Shingles, Hx Tuberculosis, Traveled Outside the [place] in Last 30 Days - Family History Known Family History: Positive: Hypertension, Other - Alzheimers and dementia Family History: Alzheimers and dementia, Parkinsons - Social History Occupation: Unemployed Lives: With Family Alcohol Use: None Hx Substance Use: No Substance Use Type: Reports: None Hx Tobacco Use: No Smoking Status (MU): Never Smoked Tobacco Review of Systems Constitutional: Negative Negative: Fever, Chills, Fatigue, Skin Diaphoresis Negative: Shortness Of Breath, Cough Negative: Abdominal Pain, Vomiting, Diarrhea, Nausea Genitourinary: Negative Positive: no symptoms reported, see HPI Positive: Arthralgia. Negative: Myalgia Positive: Other - right small bulge just above the knee Neurological: Negative All Other Systems Reviewed And Are Negative: Yes Physical Exam Triage Information Reviewed: Yes Vital Signs On Initial Exam: Initial Vitals Temp Pulse Resp BP Pulse Ox 98.8 F 75 16 133/77 96 06/15/18 10:48 06/15/18 10:48 06/15/18 10:48 06/15/18 10:48 06/15/18 10:48 Vital Signs Reviewed: Yes Appearance: Positive: Well-Appearing, Well-Nourished Skin: Positive: Warm, Skin Color Reflects Adequate Perfusion, Other - right small bulge just above the knee Head/Face: Positive: Normal Head/Face Inspection Neck: Positive: Supple, No Lymphadenopathy Respiratory/Lung Sounds: Positive: Clear to Auscultation, Breath Sounds Present Cardiovascular: Positive: RRR, Pulses are Symmetrical in both Upper and Lower Extremities Musculoskeletal: Positive: Strength/ROM Intact Neurological: Positive: Sensory/Motor Intact, Alert, Oriented to Person Place, Time, Speech Normal Psychiatric: Positive: Affect/Mood Appropriate AVPU Assessment: Alert Diagnostics - Vital Signs Vital Signs Temp Pulse Resp BP Pulse Ox 06/15/18 11:49 98.8 F 76 14 102/57 98 06/15/18 10:48 98.8 F 75 16 133/77 96 - Laboratory Lab Statement: Any lab studies that have been ordered have been reviewed, and results considered in the medical decision making process. Lower Extremity Course/Dx - Course Course Of Treatment: During this course of treatment, the patient's evaluated for a small bulge to the inner right knee. Patient has a history of varicose veins, however has never had this in the past. She was sent here from continued care to rule out DVT. On arrival, patient states she is asymptomatic , reduction of the bulge and no erythema, warmth or tenderness at this time. Discussed with the patient at length regarding superficial thrombophlebitis versus varicosities versus DVT. I do not feel it is imperative at this time she obtained a ultrasound to rule out DVT as she denies any calf pain, leg heaviness, erythema, there is no palpable cord on physical examination the patient is asymptomatic. Most likely this is a superficial thrombosis without evidence of superficial thrombophlebitis. I have encouraged her to elevate the leg when possible, use compression hose for the varicosities, take ibuprofen 6 her milligrams for any discomfort which may ensue and if erythema, worsening pain or heaviness to the leg develops, she will return to the ED. She understands these return precautions and offers no complaints or concerns at this time. - Diagnoses Differential Diagnosis/HQI/PQRI: Positive: Other - Superficial thrombophlebitis , DVT, varicose veins, superficial thrombosis Provider Diagnoses: Superficial thrombosis of leg Discharge - Sign-Out/Discharge Documenting (check all that apply): Patient Departure Patient Received Moderate/Deep Sedation with Procedure: No - Discharge Plan Condition: Stable Disposition: HOME Referrals: Bess Kaur NP [Primary Care Provider] - Additional Instructions: As discussed, you may use moist heat to the area for comfort as well as a baby aspirin and were ibuprofen 600 mg 3 times daily. This will help decrease the swelling and any pain associated. This tends to be from varicose veins and can become inflamed. This is when it becomes a superficial thrombophlebitis. These tend to be benign and usually only is treated with some ibuprofen, aspirin and warm compresses, however they can become infected I becoming very red, swollen and irritated. Compression stockings may help with any swelling and varicose veins in the calves. You can buy these at [employer] or [email or web address]. There are different sizes and tightness/compression, get a mild to medium strength. As discussed, if you develop pain to the calf, redness/soreness, feeling of heaviness to the leg or worsening discomfort throughout the leg, return to the ED immediately. - Billing Disposition and Condition Condition: STABLE Disposition: Home
== END | disposition home or self-care (01) ==
LOC: ED 10:39
DX: I82.491 Acute embolism and thrombosis of other specified deep vein of right lower extremity (principal)
CPT/HCPCS: 99282

== ENCOUNTER 2018-10-02 11:50 | Emergency (ER) | payer MEDICARE ==
--- NOTE | 2018-10-02 11:52 | UC ---
Lower Extremity/Ankle HPI - HPI Summary HPI Summary: 73 yo female presents with left heel, hip, and back pain. She tells me that on she did a lot of walking up and down hills at [place] and the next day noticed some pain in her left heel that radiates up her left calf. Also has some left lower back pain that radiates down the back of her left thigh. She has not been able to rest as she is currently putting her house up for sale and has been doing a lot of packing and cleaning. She has been taking ibuprofen daily with good intermittent relief. Denies specific injury, numbness, tingling , saddle anesthesia, dysuria, loss of bowel/bladder control, or SOB. - History of Current Complaint Stated Complaint: L HIP/LEG/FOOT COMP Time Seen by Provider: 10/02/18 11:51 Hx Obtained From: Patient Hx Last Menstrual Period: na Onset/Duration: Gradual Onset Severity Initially: Moderate Severity Currently: Moderate Pain Intensity: 5 Pain Scale Used: 0-10 Numeric Aggravating Factor(s): Standing, Ambulation Able to Bear Weight: Yes - Allergies/Home Medications Allergies/Adverse Reactions: Allergies Allergy/AdvReac Type Severity Reaction Status Date / Time Penicillins Allergy Hives Verified 10/02/18 12:10 PMH/Surg Hx/FS Hx/Imm Hx - Additional Past Medical History Additional PMH: Dementia Endocrine History: Dyslipidemia - Surgical History Surgical History: Yes Surgery Procedure, Year, and Place: - Family History Known Family History: Positive: Hypertension, Other - Alzheimers and dementia Family History: Alzheimers and dementia, Parkinsons - Social History Occupation: Retired Lives: With Family Alcohol Use: None Substance Use Type: None Smoking Status (MU): Never Smoked Tobacco - Immunization History Most Recent Tetanus Shot: not sure Review of Systems All Other Systems Reviewed And Are Negative: Yes Constitutional: Positive: Negative Skin: Positive: Negative Respiratory: Positive: Negative Cardiovascular: Positive: Negative Neurovascular: Positive: Negative Musculoskeletal: Positive: Other: - Left low back and left heel pain Neurological: Positive: Negative Psychological: Positive: Negative Physical Exam - Summary Physical Exam Summary: GENERAL: NAD. WDWN. No pain distress. SKIN: No rashes, sores, lesions, or open wounds. NECK: Supple. FROM. Nontender. No lymphadenopathy. CHEST: CTAB. No r/r/w. No accessory muscle use. Breathing comfortably and in no distress. CV: RRR. Without m/r/g. Pulses intact. Cap refill <2seconds MSK: TTP LEFT SI. No pain with flexion and extension of spine. Weak positive SLR on left for low back pain without radiation. Strength 5/5 B/L LEs including dorsiflexion and plantar flexion. FROM B/L LEs. No edema. LEFT ANKLE: FROM. Mild TTP at achilles tendon. Negative homans. Negative menchaca test. Left calf : NTTP soft and without edema. NEURO: Alert. Sensations intact B/L LEs L3-S1. Reflexes intact PSYCH: Age appropriate behavior. Triage Information Reviewed: Yes Vital Signs: Vital Signs: Temp Pulse Resp BP Pulse Ox 97.6 F 80 16 134/70 96 10/02/18 12:10/02/18 12:10/02/18 12:10/02/18 12:10/02/18 12:01 Vital Signs Reviewed: Yes Lower Extremity Course/Dx - Course Course Of Treatment: Suspect achilles tendinitis and sciatica. She was placed in a CAM boot for comfort and advised to rest, apply heat, and elevate her foot. Will rx for naproxen and avoid muscle relaxers and steroids at this time given her age and mild dementia. - Differential Dx/Diagnosis Provider Diagnosis: Achilles tendinitis, Sciatica Discharge - Sign-Out/Discharge Documenting (check all that apply): Patient Departure All imaging exams completed and their final reports reviewed: No Studies - Discharge Plan Condition: Stable Disposition: HOME Prescriptions: Naproxen [Naproxen 500 mg tab] 500 mg PO BID #20 tablet Patient Education Materials: Achilles Tendinitis (ED), Sciatica (ED), Lower Back Exercises (ED) Referrals: Bess Kaur NP [Primary Care Provider] - Additional Instructions: If you develop a fever, shortness of breath, chest pain, new or worsening symptoms - please call your PCP or go to the ED immediately. 1) Use the walking boot for comfort 2) Do not take ibuprofen/motrin/aleve with the Naproxen as these medications are related and may interact 3) Rest and apply heat to your ankle and back to relax the areas 4) If your symptoms have not improved in 5-7 days, please schedule an appt with your PCP for a recheck - Billing Disposition and Condition Condition: STABLE Disposition: Home - Attestation Statements Provider Attestation: I am administratively signing this document. I was available for consultation for this patient. I did not evaluate the patient, did not have a doctor/patient relationship with the patient, or participate in any medical decision making or disposition decisions unless I am specifically named in the chart as having consulted on the patient. If I have consulted on the patient, please see my own ED note on the patient encounter. Alex Camacho MD
[2018-10-02 12:12] VITALS: BP 134/70
== END 2018-10-02 12:30 | disposition home or self-care (01) ==
LOC: UCEAST 11:50
DX: M76.62 Achilles tendinitis, left leg (principal); M54.30 Sciatica, unspecified side; E78.5 Hyperlipidemia, unspecified; Z88.0 Allergy status to penicillin
CPT/HCPCS: 99213; G0463

== ENCOUNTER 2018-11-04 10:22 | Emergency (ER) | payer MEDICARE ==
[2018-11-04 10:30] VITALS: BP 159/90
--- NOTE | 2018-11-04 11:50 | UC ---
Back Pain HPI - HPI Summary HPI Summary: PATIENT WITH 3 DAYS OF ACUTE LEFT LOW BACK PAIN. STATES SHE HAS THESE SYMPTOMS MAYBE ONCE PER YEAR FOR THE PAST FEW YEARS AND IT USUALLY RESOLVES WITH HEAT AND IBUPROFEN AFTER A DAY OR SO. STATES SHE RECENTLY INJURED HER LEFT FOOT AND HAS BEEN WEARING A CAM BOOT. SHE ALSO REPORTS AN INCREASE IN PHYSICAL ACTIVITY SHE RECENTLY PUT HER HOUSE ON THE MARKET AND SO IS CLEANING AND STAGING IT FREQUENTLY. 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 DENIES NUMBNESS/TINGLING, LOSS OF BOWEL/BLADDER CONTROL. NO SADDLE ANESTHESIA. - History of Current Complaint Chief Complaint: UCBackPain Stated Complaint: BACK PAIN Time Seen by Provider: 11/04/18 10:32 Hx Obtained From: Patient Hx Last Menstrual Period: na Onset/Duration: Gradual Onset, Lasting Days, Still Present Timing: Constant Severity Initially: Moderate Severity Currently: Moderate Pain Intensity: 6 Pain Scale Used: 0-10 Numeric Back Pain: Is Discrete @ - LEFT LOW BACK Character: Sharp, Spasmodic Aggravating Factor(s): Movement Alleviating Factor(s): Rest, Heat, Cold Associated Signs And Symptoms: Positive: Negative - Allergies/Home Medications Allergies/Adverse Reactions: Allergies Allergy/AdvReac Type Severity Reaction Status Date / Time Penicillins Allergy Hives Verified 11/04/18 10:30 PMH/Surg Hx/FS Hx/Imm Hx - Additional Past Medical History Additional PMH: RHEUMATOID ARTHRITIS, ESSENTIAL TREMOR - Surgical History Surgical History: Yes Surgery Procedure, Year, and Place: - Family History Known Family History: Positive: Hypertension, Other - Alzheimers and dementia Family History: Alzheimers and dementia, Parkinsons - Social History Alcohol Use: None Substance Use Type: None Smoking Status (MU): Never Smoked Tobacco - Immunization History Most Recent Tetanus Shot: not sure Review of Systems All Other Systems Reviewed And Are Negative: Yes Constitutional: Positive: Negative Skin: Positive: Negative Respiratory: Positive: Negative Cardiovascular: Positive: Negative Gastrointestinal: Positive: Negative Genitourinary: Positive: Negative Musculoskeletal: Positive: Myalgia Physical Exam Triage Information Reviewed: Yes Appearance: Well-Appearing, No Pain Distress, Well-Nourished Vital Signs: Initial Vital Signs Temp 98 F 11/04/18 10:27 Pulse 83 11/04/18 10:27 Resp 18 11/04/18 10:27 BP 159/90 11/04/18 10:27 Pulse Ox 100 11/04/18 10:27 Vital Signs Reviewed: Yes Eyes: Positive: Conjunctiva Clear ENT: Positive: Hearing grossly normal Neck: Positive: Supple Respiratory: Positive: No respiratory distress, No accessory muscle use Cardiovascular: Positive: Pulses Normal Abdomen Description: Positive: Soft Musculoskeletal: Positive: ROM Intact, No Edema, Other: - NO TENDERNESS LOW BACK Neurological: Positive: Alert Psychological: Positive: Age Appropriate Behavior Skin: Negative: Rashes Back Pain Course/Dx - Course Course Of Treatment: I SUSPECT SHE HAS AGGRAVATED HER PARASPINAL MUSCULATURE. ADVISED TO CONTINUE TAKING IBUPROFEN FOR DISCOMFORT. WILL ADD TYLENOL #3 FOR BREAKTHROUGH PAIN. PATIENT MAY ALSO BENEFIT FROM A MUSCLE RELAXER. DISCUSSED POSSIBILITY OF SEDATION WITH BOTH THESE MEDICATIONS AND INCREASED RISK OF FALLS. SHE WILL USE WITH CAUTION. FOLLOW-UP WITH HER PCP. DISCUSSED THE POSSIBILITY OF PHYSICAL THERAPY IF HER SYMPTOMS BECOME MORE RECURRENT OR LONG-LASTING. TO THE ER WITHOUT FAIL IF SYMPTOMS WORSEN. - Differential Dx/Diagnosis Provider Diagnosis: Acute low back pain Discharge ED - Sign-Out/Discharge Documenting (check all that apply): Patient Departure All imaging exams completed and their final reports reviewed: No Studies - Discharge Plan Condition: Stable Disposition: HOME Prescriptions: Acetaminop/Codeine 30 MG TAB* [Tylenol/Codeine 30 MG TAB*] 1 - 2 tab PO Q6H PRN #20 tab MDD 6 PRN Reason: Pain Cyclobenzaprine TAB* [Flexeril TAB*] 10 mg PO BID PRN #30 tab PRN Reason: Pain Patient Education Materials: Acute Low Back Pain (ED) Referrals: Bess Kaur NP [Primary Care Provider] - If Needed Additional Instructions: YOUR SYMPTOMS SHOULD IMPROVE SIGNIFICANTLY OVER THE NEXT 1-2 WEEKS. IF YOU DO NOT IMPROVE EXPECTED FOLLOW-UP WITH YOUR PCP. YOU MAY BENEFIT FROM IMAGING AT THAT TIME. PHYSICAL THERAPY MAY BE BENEFICIAL TO HELP STRENGTHEN YOUR BACK IF THIS BECOMES A MORE CHRONIC OR RECURRENT CONDITION. REST. OTC IBUPROFEN NEEDED FOR DISCOMFORT. USE ACETAMINOPHEN/CODEINE FOR BREAKTHROUGH PAIN. TAKE MUSCLE RELAXER BEFORE BED. GO TO THE ED WITHOUT FAIL IF YOU DEVELOP NUMBNESS/TINGLING IN YOUR LEGS, NUMBNESS IN THE GENITAL REGION, LOSS OF BOWEL/BLADDER CONTROL, INTOLERABLE PAIN OR ANY OTHER CONCERNING SYMPTOMS. IBUPROFEN MAX DOSE: 600MG (3 TABS) EVERY 6 HRS OR 800MG (4 TABS) EVERY 8 HRS TYLENOL MAX DOSE: 1000MG (2 EXTRA STRENGTH TABS) EVERY 8 HRS OR 650MG (2 REGULAR TABS) EVERY 6 HRS - Billing Disposition and Condition Condition: STABLE Disposition: Home
== END 2018-11-04 12:09 | disposition home or self-care (01) ==
LOC: UCEAST 10:22
DX: M54.5 Low back pain (principal); Z88.0 Allergy status to penicillin
CPT/HCPCS: 99212; G0463

== ENCOUNTER 2019-01-16 12:03 | Emergency (ER) | payer MEDICARE ==
[2019-01-16 12:20] VITALS: BP 115/72
--- NOTE | 2019-01-16 12:23 | UC ---
Respiratory Complaint HPI - HPI Summary HPI Summary: 73 yo female presents with URI symptoms. She tells me that she has chronic sinus congestion and over the last 3-4 days has felt this has worsened to included sinus tenderness and post nasal drip. Last night she developed a persistent dry cough - this has concerned her as she had bronchitis last year around this time and was "laid up for a week". She does not smoke. Has not taken anything OTC for her symptoms. Denies fever, chills, sore throat, SOB. - History of Current Complaint Chief Complaint: UCGeneralIllness Stated Complaint: COUGH Time Seen by Provider: 01/16/19 12:22 Hx Obtained From: Patient Hx Last Menstrual Period: na Onset/Duration: Sudden Onset Severity Initially: Mild Severity Currently: Mild Pain Intensity: 1 Character: Cough: Nonproductive - Allergies/Home Medications Allergies/Adverse Reactions: Allergies Allergy/AdvReac Type Severity Reaction Status Date / Time Penicillins Allergy Hives Verified 01/16/19 12:13 PMH/Surg Hx/FS Hx/Imm Hx Endocrine History: Dyslipidemia - Surgical History Surgical History: Yes Surgery Procedure, Year, and Place: - Family History Known Family History: Positive: Hypertension, Other - Alzheimers and dementia Family History: Alzheimers and dementia, Parkinsons - Social History Lives: With Family Alcohol Use: None Substance Use Type: None Smoking Status (MU): Never Smoked Tobacco - Immunization History Most Recent Tetanus Shot: not sure Review of Systems All Other Systems Reviewed And Are Negative: No Constitutional: Positive: Negative Skin: Positive: Negative Eyes: Positive: Negative ENT: Positive: Sinus Congestion, Sinus Pain/Tenderness Respiratory: Positive: Cough Cardiovascular: Positive: Negative Gastrointestinal: Positive: Negative Neurological: Positive: Negative Psychological: Positive: Negative Physical Exam - Summary Physical Exam Summary: GENERAL: NAD. WDWN. No pain distress. SKIN: No rashes, sores, lesions, or open wounds. HEENT: Head: AT/NC Eyes: EOM intact. Conjunctiva clear without inflammation or discharge. Ears: Hearing grossly normal. TMs intact, no bulging, erythema, or edema. Nose: Nasal mucosa pink and moist. NTTP maxillary and frontal sinus. Throat: Posterior oropharynx without exudates, erythema, or tonsillar enlargement. Uvula midline. NECK: Supple. Nontender. No lymphadenopathy. CHEST: CTAB. No accessory muscle use. Breathing comfortably and in no distress. CV: RRR. Pulses intact. Cap refill <2seconds NEURO: Alert. PSYCH: Age appropriate behavior. Triage Information Reviewed: Yes Vital Signs: Initial Vital Signs Temp 98.4 F 01/16/19 12:14 Pulse 87 01/16/19 12:14 Resp 16 01/16/19 12:14 BP 115/72 01/16/19 12:14 Pulse Ox 97 01/16/19 12:14 Vital Signs Reviewed: Yes Respiratory Course/Dx - Course Course Of Treatment: Discussed viral vs bacterial causes with the pt and she agreed to try to treat her URI with cough medications, but if not improving in the next 2-3 days will start anbx. - Differential Dx/Diagnosis Provider Diagnosis: URI (upper respiratory infection) Discharge ED - Sign-Out/Discharge Documenting (check all that apply): Patient Departure All imaging exams completed and their final reports reviewed: No Studies - Discharge Plan Condition: Stable Disposition: HOME Prescriptions: Azithromycin TAB* [Zithromax TAB (Z-LUCY) 250 mg #6 tabs] 2 tab PO .TODAY, THEN 1 DAILY #1 lucy Benzonatate CAP* [Tessalon 100 MG CAP*] 100 mg PO TID PRN #21 cap PRN Reason: Cough Codeine Phosphate/Guaifenesin [Guaifen-Codeine 100-10 mg/5 ml] 5 ml PO BEDTIME PRN #35 ml MDD 5mL PRN Reason: Cough Patient Education Materials: Upper Respiratory Infection (ED) Referrals: Bess Kaur GROUP SALES REPRESENTATIVE [Primary Care Provider] - Additional Instructions: If you develop a fever, shortness of breath, chest pain, new or worsening symptoms - please call your PCP or go to the ED immediately. Please take the cough medication for 2-3 days and if no improvement, may start the antibiotic - Billing Disposition and Condition Condition: STABLE Disposition: Home
== END 2019-01-16 13:07 | disposition home or self-care (01) ==
LOC: UCEAST 12:03
DX: J06.9 Acute upper respiratory infection, unspecified (principal); Z88.0 Allergy status to penicillin
CPT/HCPCS: 99212; G0463

== ENCOUNTER 2019-04-30 13:17 | Emergency (ER) | payer MEDICARE ==
[2019-04-30 14:05] VITALS: BP 149/100
--- NOTE | 2019-04-30 14:33 | UC ---
Lower Extremity/Ankle HPI - HPI Summary HPI Summary: 73 yo woman with rheumatoid arthritis, being treated with diet, who was standing in her stocking feet this morning when she felt a pop in her medial anterior ankle and noted pain in the area, radiating to the left foreleg. Pain has decreased over the day, and she has not used ice or taken pain medications. Minimal swelling, no numbness. RA affects her hips and shoulders, following an anti-inflammatory diet. Active with her grandchildren and feels that the wooden floors in the home are hard on her feet. - History of Current Complaint Chief Complaint: UCLowerExtremity Stated Complaint: L FOOT PAIN Time Seen by Provider: 04/30/19 14:26 Hx Obtained From: Patient Hx Last Menstrual Period: na Onset/Duration: Sudden Onset, Lasting Hours Severity Initially: Moderate Severity Currently: Mild Pain Intensity: 2 Aggravating Factor(s): Standing, Ambulation Alleviating Factor(s): Rest Able to Bear Weight: Yes - Risk Factors Gout Risk Factors: Age Over 40 DVT Risk Factors: Negative Septic Arthritis Risk Factor: Negative - Allergies/Home Medications Allergies/Adverse Reactions: Allergies Allergy/AdvReac Type Severity Reaction Status Date / Time Penicillins Allergy Hives Verified 04/30/19 14:05 Home Medications: Home Medications NK [No Home Medications Reported] 04/30/19 [History Confirmed 04/30/19] PMH/Surg Hx/FS Hx/Imm Hx - Additional Past Medical History Additional PMH: rheumatoid arthritis Previously Healthy: Yes - states no history of hypertension. Neurological History: Other - essential tremor - Surgical History Surgical History: Yes Surgery Procedure, Year, and Place: - Family History Known Family History: Positive: Hypertension, Other - Alzheimers and dementia Family History: Alzheimers and dementia, Parkinsons, essential tremor - Social History Occupation: Retired Lives: With Family Alcohol Use: None Substance Use Type: None Smoking Status (MU): Never Smoked Tobacco - Immunization History Most Recent Tetanus Shot: not sure Review of Systems All Other Systems Reviewed And Are Negative: Yes Constitutional: Positive: Negative Skin: Positive: Negative Eyes: Positive: Negative ENT: Positive: Negative Respiratory: Positive: Negative Cardiovascular: Positive: Negative Gastrointestinal: Positive: Negative Genitourinary: Positive: Negative Motor: Positive: Negative Neurovascular: Positive: Negative Musculoskeletal: Positive: Arthralgia, Other: - sees a airplane technician for nail care. Negative: Calf Tenderness, Edema, Myalgia Neurological/Mental Status: Positive: Negative Psychological: Positive: Negative Is Patient Immunocompromised?: No Physical Exam Triage Information Reviewed: Yes Appearance: Well-Appearing, No Pain Distress Vital Signs: Initial Vital Signs Temp 97.9 F 04/30/19 13:57 Pulse 66 04/30/19 13:57 Resp 18 04/30/19 13:57 BP 149/100 04/30/19 13:57 Pulse Ox 100 04/30/19 13:57 ENT: Positive: Normal ENT inspection Neck: Positive: Supple, Nontender, No Lymphadenopathy Respiratory: Positive: Lungs clear, Normal breath sounds Cardiovascular: Positive: RRR, No Murmur Musculoskeletal: Positive: Strength Intact, ROM Intact - at left ankle and subtalar joint. Mild swelling and tenderness to palpation anterior talo fibular ligament, No Edema, Other: - bilateral pes planus Neurological Exam: Other - head tremor Neurological: Positive: Alert, Muscle Tone Normal Psychological Exam: Normal Diagnostics - Radiology No standard instances Radiology Interpretation Completed By: ED Physician - normal ankle, calcaneus spur noted., Radiologist - Patient Name: CHARLES MOTA Medical Record#: [id number] Ordering Physician: Calvin PRESTON Acct.#: [id number] : 1945 Age: 73 Sex: F Location: [facility] Exam Date: 04/30/19 1412 ADM Status: REG ER Order Information: ANKLE LEFT 3+VWS Accession Number: [id number] CPT: 05069 Indication: Left ankle pain. 3 views of left ankle demonstrates ankle mortise intact. No fracture is identified. IMPRESSION: No fracture of the left ankle is noted. < Electronically signed by Veronica Rahman MD in OV> 04/30/19 1445 Dictated By: Veronica Rahman MD Dictated Date/Time: 04/30/19 1445 Transcribed Date/Time: 04/30/19 1445 Copy to: CC:Bess Kaur NP; Anyi Sweeney MD; Calvin PRESTON Imaging - [facility] Imaging - [facility] - [facility] [address] [place] [id number] [place] [id number] [place] [phone] ph [phone] ph [phone] ph ) This report is only to be considered final once signed by the Provider(s) as displayed in the "<Electronically Signed by >" field (s). Absence of a signature indicates the report is in a draft status and still needs to be finalized. In the event this document was created by someone other than the signing Provider, the individual initiating the document will be listed in the "Entered by:" or "Dictated by:" white. 1 of 1 Lower Extremity Course/Dx - Course Course Of Treatment: diDiscussed pes planus, strengthening foot musculture, ice to ankle, follow up with airplane technician or Anyi Zapata. Reoeat blood pressure done--right arm--132/76 - Differential Dx/Diagnosis Differential Diagnosis/HQI/PQRI: Sprain, Strain, Tendonitis, Other - stress fracture Provider Diagnosis: Strain of tendon Discharge ED - Sign-Out/Discharge Documenting (check all that apply): Patient Departure All imaging exams completed and their final reports reviewed: Yes - Discharge Plan Condition: Stable Disposition: HOME Patient Education Materials: Flatfoot (DC) Referrals: Bess Kaur NP [Primary Care Provider] - Additional Instructions: I think that the decreae in foot arch placed a strain on your ankle tendons, causing the pop. Use ice to the tendern area for 10 minutes 3 times per day. Put your ankles thorugh a strengthening range of motion by writing the alphabet with your foot. Strengthen your foot by scrunching up a towel under your foot with your toes. Stretch out the foot muscles by rolling your foot over a rolling pin or bottle. Follow up with your airplane technician about a possible foot orthotic, OR begin to wear a shoe with more arch support. - Billing Disposition and Condition Condition: STABLE Disposition: Home
== END 2019-04-30 15:45 | disposition home or self-care (01) ==
LOC: UCEAST 13:17
DX: S96.912A Strain of unspecified muscle and tendon at ankle and foot level, left foot, initial encounter (principal); M06.9 Rheumatoid arthritis, unspecified; Z88.0 Allergy status to penicillin; X58.XXXA Exposure to other specified factors, initial encounter; Y92.9 Unspecified place or not applicable
CPT/HCPCS: 99211; G0463